=== PATIENT | female | born 1930 | race Caucasian/White ===

== ENCOUNTER → 2017-01-01 | Outpatient (CLI) | payer OTHER | LOC: HYPER 07:20 | DX: S81.801D Unspecified open wound, right lower leg, subsequent encounter (principal); R60.9 Edema, unspecified; F32.9 Major depressive disorder, single episode, unspecified; I48.0 Paroxysmal atrial fibrillation; G89.29 Other chronic pain; D64.9 Anemia, unspecified; R63.4 Abnormal weight loss; Z85.3 Personal history of malignant neoplasm of breast; E78.5 Hyperlipidemia, unspecified; Z95.0 Presence of cardiac pacemaker; X58.XXXD Exposure to other specified factors, subsequent encounter ==

== ENCOUNTER → 2017-01-21 | Outpatient (CLI) | payer OTHER | LOC: HYPER 07:06 | DX: S81.801D Unspecified open wound, right lower leg, subsequent encounter (principal); F32.9 Major depressive disorder, single episode, unspecified; I48.0 Paroxysmal atrial fibrillation; G89.29 Other chronic pain; N18.3 Chronic kidney disease, stage 3 (moderate); D64.9 Anemia, unspecified; Z85.3 Personal history of malignant neoplasm of breast; R63.4 Abnormal weight loss; E78.5 Hyperlipidemia, unspecified; Z87.01 Personal history of pneumonia (recurrent); Z96.659 Presence of unspecified artificial knee joint; X58.XXXD Exposure to other specified factors, subsequent encounter ==

== ENCOUNTER → 2017-03-14 | Outpatient (CLI) | payer OTHER | LOC: HYPER 08:14 | DX: S81.801D Unspecified open wound, right lower leg, subsequent encounter (principal); K21.9 Gastro-esophageal reflux disease without esophagitis; F32.9 Major depressive disorder, single episode, unspecified; I48.0 Paroxysmal atrial fibrillation; G89.29 Other chronic pain; D64.9 Anemia, unspecified; R63.4 Abnormal weight loss; R60.0 Localized edema; I12.9 Hypertensive chronic kidney disease with stage 1 through stage 4 chronic kidney disease, or unspecified chronic kidney disease; N18.3 Chronic kidney disease, stage 3 (moderate); E78.5 Hyperlipidemia, unspecified; Z85.3 Personal history of malignant neoplasm of breast; Z95.0 Presence of cardiac pacemaker; X58.XXXD Exposure to other specified factors, subsequent encounter ==